=== PATIENT | male | born 1965 | race Caucasian/White ===

== ENCOUNTER 2016-12-10 13:07 | Emergency (ER) | payer BC ==
[~2016-12-10] VITALS: Ht 182.9 cm; Wt 63.5 kg
[~2016-12-10 13:07] MED LIST: ASPI81 PO
[2016-12-10 13:11] VITALS: BP 119/76; PULSE 80; RESP 18; TEMP 97.3; O2SAT 96
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
[2016-12-10] MEDS ORDERED: IBUPROFEN 800 MG TAB PO ONE (14:15)
[2016-12-10] MEDS ORDERED: BACT800T5 PO (14:15)
[2016-12-10] MEDS ORDERED: CEPHALEXIN MONOHYDRATE 500 MG CAP PO ONE (14:15)
[2016-12-10] MEDS ORDERED: SULFAMETHOXAZOLE-TRIMETHOPRIM DS 800-160 MG TAB PO ONE (14:15)
[2016-12-10] MEDS ORDERED: CEPH-460 PO (14:16)
== END 2016-12-10 14:33 | disposition home or self-care (01) ==
LOC: NEPA 13:07
DX: L03.116 Cellulitis of left lower limb (principal); L03.115 Cellulitis of right lower limb
CPT/HCPCS: 99284

== ENCOUNTER 2017-02-26 18:59 | Emergency (ER) | payer BC ==
[~2017-02-26 18:59] MED LIST changes: -ASPI81 PO; +BACT800T5 PO; +CEPH-460 PO
[2017-02-26 19:02] VITALS: BP 129/74; PULSE 81; RESP 16; TEMP 98.9; O2SAT 99
[2017-02-26] MEDS ORDERED: CEPHALEXIN MONOHYDRATE 500 MG CAP PO ONE (21:30)
[2017-02-26] MEDS ORDERED: SULFAMETHOXAZOLE-TRIMETHOPRIM DS 800-160 MG TAB PO ONE (21:30)
[2017-02-26] MEDS ORDERED: CEPH-460 PO (21:32)
[2017-02-26] MEDS ORDERED: BACT800T5 PO (21:32)
--- NOTE | 2017-02-26 21:35 | PD ---
HPI Chief Complaint: Skin Problem Time Seen by Provider: 21:28 Travel History International Travel<30 days: No Contact w/Intl Traveler<30days: No Traveled to known affect area: No History of Present Illness HPI 51-year-old white male presents to emergency Department with complaints of a painful lump under his left armpit for the past week. He denies any history of prior skin infections. He is up-to-date with immunizations. No fever or chills. Pain is [id number]. No alleviating or exacerbating activities PFSH Past Medical History Cardiovascular Problems: Yes (CP) Immunizations Current: Yes Tetanus Vaccination: < 5 Years Past Surgical History Surgical History: No Previous Surgery Social History Alcohol Use: No Tobacco Use: Yes Allergies-Medications (Allergen,Severity, Reaction): Coded Allergies: No Known Allergies (Verified , 12/10/16) Reported Meds & Prescriptions Reported Meds & Active Scripts Active Bactrim DS (Sulfamethoxazole-Trimethoprim) 800-160 Mg Tab 1 Tab PO BID Keflex (Cephalexin) 500 Mg Capsule 500 Mg PO Q6H 7 Days Keflex (Cephalexin) 500 Mg Cap 500 Mg PO Q8H Bactrim DS (Sulfamethoxazole-Trimethoprim) 800-160 Mg Tab 1 Tab PO BID Review of Systems General / Constitutional: No: Fever Eyes: No: Visual changes HENT: No: Headaches Cardiovascular: No: Chest Pain or Discomfort Respiratory: No: Shortness of Breath Gastrointestinal: No: Abdominal Pain Genitourinary: No: Dysuria Musculoskeletal: No: Pain Skin: No Rash Neurologic: No: Weakness Psychiatric: No: Depression Endocrine: No: Polydipsia Hematologic/Lymphatic: No: Easy Bruising Physical Exam Narrative GENERAL: This is a well-nourished, well-developed patient, in no apparent distress. SKIN: Patient has an area of induration, thickening, erythema and tenderness to the left axilla. This measures 1.5 x 1.5 cm. ecchymoses or lesions. Warm and dry. HEAD: Atraumatic. Normocephalic. EYES: PERRL, EOMI, no discharge or injection. No scleral icterus. EARS: Clear NOSE: Nasal turbinates appear normal. THROAT: Mucosa pink and moist. Airway patent. NECK: Trachea midline. supple, moves head freely. LUNGS: Clear to auscultation. CV: Regular in rhythm. ABDOMEN: Soft nontender. EXT: No clubbing cyanosis or edema. Data Data Last Documented VS Vital Signs Date Time Temp Pulse Resp B/P (MAP) Pulse Ox O2 Delivery O2 Flow Rate FiO2 02/26/17 19:02 98.9 81 16 129/74 (92) 99 Room Air Orders Orders Ed Discharge Order (02/26/17 21:30) Sulfamet-Trimeth Ds 800-160 Mg (Bactrim (02/26/17 21:30) Cephalexin (Keflex) (02/26/17 21:30) MDM Medical Decision Making Medical Screen Exam Complete: Yes Emergency Medical Condition: Yes Medical Record Reviewed: Yes Differential Diagnosis MDM: High Differential diagnoses: Abscess, folliculitis, cellulitis, lymphangitis, abrasion, contact dermatitis Narrative Course Patient given Keflex 500 and Bactrim DS by mouth. This is left axilla abscess Diagnosis Primary Impression: Abscess of left axilla Patient Instructions: General Instructions Additional Instructions: Rest. Elevation. keep clean and dry. Warm compresses Daily wound care with soap, water and Neosporin. Three Advil every 6 hours. Keflex and Bactrim DS. Follow-up with a primary care doctor in one week. Return to the ER for any problems. Med/Other Pt SpecificInfo: Prescription(s) given Scripts Sulfamethoxazole-Trimethoprim (Bactrim DS) 800-160 Mg Tab 1 TAB PO BID for Infection, #20 TAB 0 Refills Prov: Opal Ballard DO 02/26/17 Cephalexin (Keflex) 500 Mg Capsule 500 MG PO Q6H for Infection for 7 Days, #28 CAP 0 Refills Prov: Opal Ballard DO 02/26/17 Disposition: 01 DISCHARGE HOME Condition: Stable Carlos Gonzales Feb 26, 2017 21:35
== END 2017-02-26 21:54 | disposition home or self-care (01) ==
LOC: NEPK 18:59
DX: L02.412 Cutaneous abscess of left axilla (principal)
CPT/HCPCS: 99284

== ENCOUNTER 2017-02-28 19:17 | Emergency (ER) | payer BC ==
[~2017-02-28] VITALS: Ht 182.9 cm; Wt 65.0 kg
[2017-02-28 19:20] VITALS: BP 143/68; PULSE 81; RESP 16; TEMP 97.8; O2SAT 99
[2017-02-28] MEDS ORDERED: LIDOCAINE HCL 1% 30 ML VIAL INFIL ONE (19:45)
--- NOTE | 2017-02-28 19:51 | PD ---
HPI Chief Complaint: Skin Problem Time Seen by Provider: 19:35 Travel History International Travel<30 days: No Contact w/Intl Traveler<30days: No Traveled to known affect area: No History of Present Illness HPI 51-year-old male presents to the ED for evaluation of painful lump on the left arm times ~ one week. Patient was seen in the ED two nights ago and diagnosed with abscess. He was prescribed Bactrim and Keflex and endorses compliance with antibiotics. He states however that the areas gotten larger and the pain is now radiating down his arm. He denies fevers, chills, nausea, vomiting, history of MRSA, numbness, tingling, weakness, limitations to range of motion of the extremity. PFSH Past Medical History Cardiovascular Problems: Yes ("calcium around my heart") Diminished Hearing: No Immunizations Current: Yes Tetanus Vaccination: < 5 Years Influenza Vaccination: No Social History Alcohol Use: No Tobacco Use: Yes Substance Use: No Allergies-Medications (Allergen,Severity, Reaction): Coded Allergies: No Known Allergies (Verified Adverse Reaction, Unknown, 02/28/17) Reported Meds & Prescriptions Reported Meds & Active Scripts Active Keflex (Cephalexin) 500 Mg Capsule 500 Mg PO Q6H 7 Days Keflex (Cephalexin) 500 Mg Cap 500 Mg PO Q8H Review of Systems Except as stated in HPI: all other systems reviewed are Neg Physical Exam Narrative GENERAL: Well-nourished, well-developed pleasant white male in no acute distress. SKIN: Focused skin assessment warm/dry. SKIN: There is an indurated area in the left axilla which measures about 3 cm in diameter. It is fluctuant but there is no pointing or drainage. There is a zone of inflammation around it but no lymphangitis. HEAD: Normocephalic. EYES: No scleral icterus. No injection or drainage. NECK: Supple, trachea midline. No JVD or lymphadenopathy. CARDIOVASCULAR: Regular rate and rhythm without murmurs, gallops, or rubs. RESPIRATORY: Breath sounds equal bilaterally. No accessory muscle use. GASTROINTESTINAL: Abdomen soft, non-tender, nondistended. MUSCULOSKELETAL: No cyanosis, or edema. FOCUSED LEFT UPPER EXTREMITY EXAM: 2+ DP pulse. Patient retains full, active, painless ROM of the entire extremity. Cap refill less than 2 seconds. Sensation intact to light touch distally. BACK: Nontender without obvious deformity. No CVA tenderness. Data Data Last Documented VS Vital Signs Date Time Temp Pulse Resp B/P (MAP) Pulse Ox O2 Delivery O2 Flow Rate FiO2 02/28/17 19:20 97.8 81 16 143/68 (93) 99 Room Air Orders Orders Basic Metabolic Panel (Bmp) (02/28/17 19:35) Wound Culture And Gram Stain (02/28/17 19:35) Iv Access Insert/Monitor (02/28/17 19:35) Complete Blood Count With Diff (02/28/17 19:42) Lidocaine 1% Inj (Xylocaine 1% Inj) (02/28/17 19:45) Ibuprofen (Motrin) (02/28/17 20:00) Lidocaine 1% Inj (50 Ml) (Xylocaine 1% I (02/28/17 20:35) Ed Discharge Order (02/28/17 21:03) Labs Laboratory Tests Test 02/28/17 19:50 White Blood Count 8.0 TH/MM3 Red Blood Count 4.55 MIL/MM3 Hemoglobin 14.0 GM/DL Hematocrit 41.1 % Mean Corpuscular Volume 90.4 FL Mean Corpuscular Hemoglobin 30.7 PG Mean Corpuscular Hemoglobin Concent 33.9 % Red Cell Distribution Width 13.6 % Platelet Count 252 TH/MM3 Mean Platelet Volume 8.3 FL Neutrophils (%) (Auto) 53.0 % Lymphocytes (%) (Auto) 34.2 % Monocytes (%) (Auto) 7.9 % Eosinophils (%) (Auto) 4.0 % Basophils (%) (Auto) 0.9 % Neutrophils # (Auto) 4.3 TH/MM3 Lymphocytes # (Auto) 2.8 TH/MM3 Monocytes # (Auto) 0.6 TH/MM3 Eosinophils # (Auto) 0.3 TH/MM3 Basophils # (Auto) 0.1 TH/MM3 CBC Comment DIFF FINAL Differential Comment MDM Medical Decision Making Medical Screen Exam Complete: Yes Emergency Medical Condition: Yes Differential Diagnosis Abscess versus hidradenitis versus cellulitis versus other Narrative Course 51-year-old male presents to the ED for evaluation of painful lump on the left arm times ~ one week. Patient was seen in the ED two nights ago and diagnosed with abscess. He was prescribed Bactrim and Keflex and endorses compliance with antibiotics. He states however that the areas gotten larger and the pain is now radiating down his arm. He denies fevers, chills, nausea, vomiting, history of MRSA, numbness, tingling, weakness, limitations to range of motion of the extremity. Patient afebrile on presentation. Physical exam reveals a 3 cm abscess in the left axilla without cellulitic streaking or lymphadenopathy. Abscess I&D was performed. Please see my procedure note for details. Cultures were obtained and are pending. No elevation of the white count on the CBC. The patient's reliable to return should symptoms worsen. His is an PROC[employer]URE [employer] and he states she will be able to remove the packing in 2 days. He is instructed to continue with the antibiotics until they're completely gone, follow-up with the primary care provider. He indicated understanding of instructions and is agreeable to the care plan. He is stable and discharged home. Procedures Procedure Narrative INCISION AND DRAINAGE OF ABSCESS: The area was prepped and was sterilely draped. A subcutaneous wheal of 1% % Xylocaine with a total number 3 mL was used to anesthetize the area properly. A number 11 scalpel was used to make a 1.25-cm incision across the area of the abscess. The abscess was drained, complex loculations were broken down, and irrigated with normal saline. Cultures were obtained. Quarter inch iodoform packing was placed in the wound. Sterile dressing applied. Patient advised to have packing removed in two days. Diagnosis Primary Impression: Abscess of left axilla Referrals: Primary Care Physician Patient Instructions: Abscess Incision and Drainage (DC), General Instructions Additional Instructions: Rest, hydrate. Do not change the dressing for 48 hours. Packing removal in 48 hours. You may bathe normally. Do not submerge the wound. After bathing pat of wound dry. Allow the wound to air dry for 10-15 minutes. Apply a thin layer of antibiotic ointment and a clean, dry dressing. Take the antibiotics as they are prescribed, even if your symptoms resolved. Utilize [id number] pain medications, as described on the label, as needed. Return to the ED for worsening symptoms as discussed. Return to the ED for any urgent or emergent medical condition. Disposition: 01 DISCHARGE HOME Condition: Stable Yisel Brito Feb 28, 2017 19:51
[2017-02-28] MEDS ORDERED: IBUPROFEN 800 MG TAB PO ONE (20:00)
[2017-02-28 20:31] LABS: AUTOMATED NEUTROPHIL # 4.3 TH/MM3 (1.8-7.7); BASOPHIL # 0.1 TH/MM3 (0-0.2); BASOPHIL % 0.9 % (0.0-2.0); EOSINOPHIL # 0.3 TH/MM3 (0-0.4); HEMATOCRIT 41.1 % (39.0-51.0); HEMO FLAGS DIFF FINAL; LYMPH % 34.2 % (9.0-44.0); LYMPHOCYTE # 2.8 TH/MM3 (1.0-4.8); MEAN CELL VOLUME 90.4 FL (80.0-100.0); MEAN CORPUSCULAR HEMOGLOBIN 30.7 PG (27.0-34.0); MEAN CORPUSCULAR HGB CONC 33.9 % (32.0-36.0); MONO % 7.9 % (0.0-8.0); PLATELET COUNT 252 TH/MM3 (150-450); RED BLOOD COUNT 4.55 MIL/MM3 (4.50-5.90); RED CELL DISTRIBUTION WIDTH 13.6 % (11.6-17.2)
[2017-02-28] MEDS ORDERED: LIDOCAINE HCL 1% 50 ML VIAL ONE (20:35)
[2017-02-28 21:27] LABS: BICARBONATE 28.9 MEQ/L (21.0-32.0)
== END 2017-02-28 22:09 | disposition home or self-care (01) ==
LOC: NEPC 19:17
DX: L02.412 Cutaneous abscess of left axilla (principal); B95.62 Methicillin resistant Staphylococcus aureus infection as the cause of diseases classified elsewhere; Z72.0 Tobacco use
CPT/HCPCS: 10060; 80048; 85025; 86403; 87070; 87186; 87205

== ENCOUNTER 2017-04-01 17:52 | Emergency (ER) | payer BC ==
[~2017-04-01 17:52] MED LIST changes: -BACT800T5 PO
[2017-04-01 17:53] VITALS: BP 139/68; PULSE 82; RESP 16; TEMP 98.9; O2SAT 98
[2017-04-01] MEDS ORDERED: BACT800T5 PO (19:12)
--- NOTE | 2017-04-01 19:15 | PD ---
HPI Chief Complaint: Skin Problem Time Seen by Provider: 19:12 Travel History International Travel<30 days: No Contact w/Intl Traveler<30days: No Traveled to known affect area: No History of Present Illness HPI 51-year-old male here for evaluation of painful area of skin redness in the left axilla. It started yesterday. Pain is mild, aching, worse with palpation. Denies drainage, fevers chills. He was seen in February with left axillary abscess. Wound culture at that time grow MRSA. He has no other complaints at this time. [facility] Past Medical History Medical History: Denies Significant Hx Cardiovascular Problems: Yes ("calcium around my heart") Diminished Hearing: No Immunizations Current: Yes Tetanus Vaccination: < 5 Years Influenza Vaccination: No Past Surgical History Other Surgery: Yes (TONSILLECTOMY) Social History Alcohol Use: No Tobacco Use: Yes (1ppd) Substance Use: No Allergies-Medications (Allergen,Severity, Reaction): Coded Allergies: No Known Allergies (Verified Adverse Reaction, Unknown, 04/01/17) Reported Meds & Prescriptions Reported Meds & Active Scripts Active Bactrim DS (Sulfamethoxazole-Trimethoprim) 800-160 Mg Tab 1 Tab PO BID Review of Systems General / Constitutional: No: Fever, Chills Skin: Positive Other (skin redness, pain) Physical Exam Narrative GENERAL: Well-nourished male in no acute distress SKIN: Warm and dry. Folliculitis noted to the left axilla with mild erythema. No induration or fluctuance or drainage. No lymphadenopathy. HEAD: Atraumatic. Normocephalic. EYES: Pupils equal and round. No scleral icterus. No injection or drainage. ENT: No nasal bleeding or discharge. Mucous membranes pink and moist. NECK: Trachea midline. No JVD. CARDIOVASCULAR: Regular rate and rhythm. No murmur appreciated. RESPIRATORY: No accessory muscle use. Clear to auscultation. Breath sounds equal bilaterally. Data Data Last Documented VS Vital Signs Date Time Temp Pulse Resp B/P (MAP) Pulse Ox O2 Delivery O2 Flow Rate FiO2 04/01/17 17:53 98.9 82 16 139/68 (91) 98 Orders Orders Ed Discharge Order (04/01/17 19:12) MDM Medical Decision Making Medical Screen Exam Complete: Yes Emergency Medical Condition: Yes Medical Record Reviewed: Yes Differential Diagnosis Folliculitis, cellulitis, abscess, carbuncle, hydradenitis Narrative Course Examination is consistent with folliculitis mild cellulitis in the left axilla. Wound cultures from the left axillary abscess in February grow out MRSA. Therefore the patient be started on Bactrim. Diagnosis Primary Impression: Folliculitis of left axilla Additional Impression: Cellulitis of left axilla Additional Instructions: Medication as prescribed. Warm compresses several times a day 15 minutes at a time. Return for any emergent medical conditions. Med/Other Pt SpecificInfo: Prescription(s) given Scripts Sulfamethoxazole-Trimethoprim (Bactrim DS) 800-160 Mg Tab 1 TAB PO BID for Infection, #20 TAB 0 Refills Prov: Orville Rodriguez MD 04/01/17 Disposition: 01 DISCHARGE HOME Condition: Stable Bill Anton Apr 01, 2017 19:15
== END 2017-04-01 19:31 | disposition home or self-care (01) ==
LOC: NEPD 17:52
DX: L73.9 Follicular disorder, unspecified (principal); L03.112 Cellulitis of left axilla; F17.200 Nicotine dependence, unspecified, uncomplicated
CPT/HCPCS: 99283

== ENCOUNTER 2017-04-04 06:12 | Emergency (ER) | payer BC ==
[~2017-04-04] VITALS: Ht 177.8 cm; Wt 75.0 kg
[2017-04-04 06:12] VITALS: BP 129/75; PULSE 80; RESP 16; TEMP 97.9; O2SAT 100
[~2017-04-04 06:12] MED LIST changes: +BACT800T5 PO; -CEPH-460 PO
[2017-04-04] MEDS ORDERED: DOXY100C PO (06:30)
--- NOTE | 2017-04-04 06:33 | PD ---
HPI Chief Complaint: Skin Problem Time Seen by Provider: 06:27 Travel History International Travel<30 days: No Contact w/Intl Traveler<30days: No Traveled to known affect area: No History of Present Illness HPI 51-year-old male presents for evaluation of abscess left axilla. He was seen here a few days ago with folliculitis in left axilla. He was prescribed Bactrim. Symptoms have worsened which prompted her evaluation. He reports associate pain, aching, localized to left axilla. Denies drainage, fevers or chills. No other complaints. PFSH Past Medical History Cardiovascular Problems: Yes ("calcium around my heart") Diminished Hearing: No Immunizations Current: Yes Tetanus Vaccination: < 5 Years Influenza Vaccination: No Past Surgical History Other Surgery: Yes (TONSILLECTOMY) Social History Alcohol Use: No Tobacco Use: Yes (1ppd) Substance Use: No Allergies-Medications (Allergen,Severity, Reaction): Coded Allergies: No Known Allergies (Verified Adverse Reaction, Unknown, 04/04/17) Reported Meds & Prescriptions Reported Meds & Active Scripts Active Doxycycline Hyclate 100 Mg Cap 100 Mg PO BID Bactrim DS (Sulfamethoxazole-Trimethoprim) 800-160 Mg Tab 1 Tab PO BID Review of Systems General / Constitutional: No: Fever, Chills Skin: Positive Other (positive soft tissue swelling, pain) Physical Exam Narrative GENERAL: Well-nourished male in no acute distress SKIN: Warm and dry. 1 Cm fluctuant abscess left axilla. HEAD: Atraumatic. Normocephalic. EYES: Pupils equal and round. No scleral icterus. No injection or drainage. ENT: No nasal bleeding or discharge. Mucous membranes pink and moist. NECK: Trachea midline. No JVD. CARDIOVASCULAR: Regular rate and rhythm. No murmur appreciated. RESPIRATORY: No accessory muscle use. Clear to auscultation. Breath sounds equal bilaterally. Data Data Last Documented VS Vital Signs Date Time Temp Pulse Resp B/P (MAP) Pulse Ox O2 Delivery O2 Flow Rate FiO2 04/04/17 06:12 97.9 80 16 129/75 (93) 100 Room Air MDM Medical Decision Making Medical Screen Exam Complete: Yes Emergency Medical Condition: Yes Medical Record Reviewed: Yes Differential Diagnosis Axillary abscess, carbuncle, hydradenitis, cellulitis, infected cyst Narrative Course The patient has an abscess in the left axilla. Incision and drainage was performed, he verbally consented. Recent wound culture from left axilla grew MRSA sensitive to doxycycline. He will be started on doxycycline. Procedures Procedure Narrative INCISION AND DRAINAGE OF ABSCESS: The area was prepped and was sterilely draped. A subcutaneous wheal of 1% Xylocaine with a total number 4 mL was used to anesthetize the area. The area was properly anesthetized. A number 11 scalpel was used to make a 1 -cm incision across the area of the abscess. Diagnosis Primary Impression: Abscess of left axilla Additional Instructions: Medications as prescribed. Warm compresses several times a day 10 minutes at a time. Return for any acutely new or worsening symptoms. Med/Other Pt SpecificInfo: Prescription(s) given Scripts Doxycycline Hyclate (Doxycycline Hyclate) 100 Mg Cap 100 MG PO BID for Infection, #20 CAP 0 Refills Prov: Kiley Suarez MD 04/04/17 Disposition: 01 DISCHARGE HOME Condition: Stable Bill Anton Apr 04, 2017 06:33
== END 2017-04-04 06:47 | disposition home or self-care (01) ==
LOC: NEPD 06:12
DX: L02.412 Cutaneous abscess of left axilla (principal); B95.62 Methicillin resistant Staphylococcus aureus infection as the cause of diseases classified elsewhere; F17.200 Nicotine dependence, unspecified, uncomplicated
CPT/HCPCS: 10060

== ENCOUNTER 2017-05-27 17:28 | Emergency (ER) | payer BC ==
[~2017-05-27] VITALS: Ht 182.9 cm; Wt 66.5 kg
[2017-05-27 17:28] VITALS: BP 120/65; PULSE 93; RESP 18; TEMP 99; O2SAT 97
[~2017-05-27 17:28] MED LIST changes: +DOXY100C PO
[2017-05-27 18:06] LABS: AUTOMATED NEUTROPHIL # 4.6 TH/MM3 (1.8-7.7); BASOPHIL # 0.1 TH/MM3 (0-0.2); EOSINOPHIL # 0.3 TH/MM3 (0-0.4); EOSINOPHIL % 3.4 % (0.0-4.0); HEMATOCRIT 40.6 % (39.0-51.0); HEMOGLOBIN 14.1 GM/DL (13.0-17.0); LYMPH % 29.3 % (9.0-44.0); LYMPHOCYTE # 2.3 TH/MM3 (1.0-4.8); MEAN CELL VOLUME 89.3 FL (80.0-100.0); MEAN CORPUSCULAR HGB CONC 34.8 % (32.0-36.0); MEAN PLATELET VOLUME 8.1 FL (7.0-11.0); MONO % 8.8 % (0.0-8.0); MONOCYTE # 0.7 TH/MM3 (0-0.9); NEUT % 57.5 % (16.0-70.0); PLATELET COUNT 251 TH/MM3 (150-450); RED BLOOD COUNT 4.55 MIL/MM3 (4.50-5.90); RED CELL DISTRIBUTION WIDTH 13.5 % (11.6-17.2)
[2017-05-27 18:16] LABS: BILIRUBIN, URINE NEG (NEG); BLOOD, URINE NEG (NEG); GLUCOSE,URINE NEG (NEG); KETONE, URINE NEG (NEG); NITRITE,URINE NEG (NEG); URINE COLOR YELLOW (YELLW/STRAW); URINE LEUKOCYTE ESTERASE NEG (NEG)
[2017-05-27 18:30] LABS: ALBUMIN 3.9 GM/DL (3.4-5.0); AST (GOT) 22 U/L (15-37); BICARBONATE 25.6 MEQ/L (21.0-32.0); BLOOD UREA NITROGEN 13 MG/DL (7-18); CALCIUM 9.3 MG/DL (8.5-10.1); CHLORIDE 104 MEQ/L (98-107); CREATININE 1.01 MG/DL (0.60-1.30); GLOMERULAR FILTRATION RATE 78 ML/MIN (>89); GLUCOSE,RANDOM 85 MG/DL (74-106); SODIUM (NA) 137 MEQ/L (136-145)
[2017-05-27 18:32] LABS: ALKALINE PHOSPHATASE 85 U/L (45-117); ALT (GPT) 25 U/L (12-78); TOTAL BILIRUBIN ADULT 0.4 MG/DL (0.2-1.0); TOTAL PROTEIN 6.7 GM/DL (6.4-8.2)
--- NOTE | 2017-05-27 19:14 | RADRPT ---
EXAM DATE/TIME: 05/27/2017 18:47 [facility] COMPARISON: No previous studies available for comparison. INDICATIONS : Left flank pain. ORAL CONTRAST: No oral contrast ingested. RADIATION DOSE: 6.79 CTDIvol (mGy) MEDICAL HISTORY : Cardiovascular disease. SURGICAL HISTORY : Tonsillectomy. ENCOUNTER: Initial ACUITY: 1 day PAIN SCALE: 5/10 LOCATION: Left flank TECHNIQUE: Volumetric scanning of the abdomen and pelvis was performed. Using automated exposure control and ad justment of the mA and/or kV according to patient size, radiation dose was kept as low as reasonably achievable to obtain optimal diagnostic quality images. DICOM format image data is available electro nically for review and comparison. The lack of IV contrast limits the diagnosis for certain organ pa thology. FINDINGS: LOWER LUNGS: The visualized lower lungs are clear. LIVER: Homogeneous density without lesion. There is no dilation of the biliary tree. No calcified gallston es. The gallbladder is contracted. SPLEEN: Normal size without lesion. PANCREAS: Within normal limits. KIDNEYS: Normal in size and shape. There is no mass, stone, or hydronephrosis. ADRENAL GLANDS: Within normal limits. VASCULAR: There is no aortic aneurysm. Atherosclerotic changes in the aorta. BOWEL/MESENTERY: The stomach, small bowel, and colon demonstrate no acute abnormality. There is no free intraperitone al air or fluid. No inflammatory changes. ABDOMINAL WALL: Within normal limits. RETROPERITONEUM: There is no lymphadenopathy. BLADDER: No wall thickening or mass. REPRODUCTIVE: Within normal limits. INGUINAL: There is no lymphadenopathy or hernia. MUSCULOSKELETAL: Within normal limits for patient age. CONCLUSION: 1. No evidence of calcified renal stones or hydronephrosis. 2. Unremarkable noncontrast CT scan of the abdomen and pelvis for patient's age. Samir Palomo MD on May 27, 2017 at 19:10 Board Certified Radiologist. This report was verified electronically.
[2017-05-27] MEDS ORDERED: CYCL10TA PO (22:28)
--- NOTE | 2017-05-27 22:28 | PD ---
HPI Chief Complaint: Flank/Kidney Pain Time Seen by Provider: 22:10 Travel History International Travel<30 days: No Contact w/Intl Traveler<30days: No Traveled to known affect area: No History of Present Illness HPI 51-year-old male here for evaluation of right flank pain. The patient reports sharp pain in his right flank area for the last 3 days which is been constant, radiates to his right groin, intermittently worse at times, sometimes worse with movements. Patient describes the pain as sharp, currently 5 out of 10. He denies dysuria or gross hematuria. No fevers, chills, vomiting, or diarrhea. He denies trauma. No rash. PFSH Past Medical History Cardiovascular Problems: Yes ("calcium around my heart") Diminished Hearing: No Immunizations Current: Yes Past Surgical History Other Surgery: Yes (TONSILLECTOMY) Social History Alcohol Use: No Tobacco Use: Yes (1ppd) Substance Use: No Allergies-Medications (Allergen,Severity, Reaction): Coded Allergies: No Known Allergies (Verified Adverse Reaction, Unknown, 04/04/17) Reported Meds & Prescriptions Reported Meds & Active Scripts Active Doxycycline Hyclate 100 Mg Cap 100 Mg PO BID Bactrim DS (Sulfamethoxazole-Trimethoprim) 800-160 Mg Tab 1 Tab PO BID Review of Systems Except as stated in HPI: all other systems reviewed are Neg Physical Exam Narrative GENERAL: Well-developed, well-nourished, comfortable, no apparent distress. SKIN: Focused skin assessment warm/dry. No rash. HEAD: Atraumatic. Normocephalic. EYES: Pupils equal and round. No scleral icterus. No injection or drainage. ENT: No nasal bleeding or discharge. Mucous membranes pink and moist. NECK: Trachea midline. No JVD. CARDIOVASCULAR: Regular rate and rhythm. RESPIRATORY: No accessory muscle use. Clear to auscultation. Breath sounds equal bilaterally. GASTROINTESTINAL: Abdomen soft, non-tender, nondistended. No hernias. MUSCULOSKELETAL: No obvious deformities. No clubbing. No cyanosis. No edema. No midline vertebral step-off or tenderness. Mild right CVA tenderness. Mild left CVA tenderness. NEUROLOGICAL: Awake and alert. No obvious cranial nerve deficits. Motor grossly within normal limits. Normal speech. PSYCHIATRIC: Appropriate mood and affect; insight and judgment normal. Data Data Last Documented VS Vital Signs Date Time Temp Pulse Resp B/P (MAP) Pulse Ox O2 Delivery O2 Flow Rate FiO2 05/27/17 17:28 99.0 93 18 120/65 (83) 97 Room Air Orders Orders Complete Blood Count With Diff (05/27/17 17:41) Comprehensive Metabolic Panel (05/27/17 17:41) Urinalysis - C+S If Indicated (05/27/17 17:41) Ct Abd/Pel W/O Iv Contrast (05/27/17 17:41) Lipase (05/27/17 17:41) Ketorolac Inj (Toradol Inj) (05/27/17 22:30) Labs Laboratory Tests Test 05/27/17 17:50 White Blood Count 8.0 TH/MM3 Red Blood Count 4.55 MIL/MM3 Hemoglobin 14.1 GM/DL Hematocrit 40.6 % Mean Corpuscular Volume 89.3 FL Mean Corpuscular Hemoglobin 31.0 PG Mean Corpuscular Hemoglobin Concent 34.8 % Red Cell Distribution Width 13.5 % Platelet Count 251 TH/MM3 Mean Platelet Volume 8.1 FL Neutrophils (%) (Auto) 57.5 % Lymphocytes (%) (Auto) 29.3 % Monocytes (%) (Auto) 8.8 % Eosinophils (%) (Auto) 3.4 % Basophils (%) (Auto) 1.0 % Neutrophils # (Auto) 4.6 TH/MM3 Lymphocytes # (Auto) 2.3 TH/MM3 Monocytes # (Auto) 0.7 TH/MM3 Eosinophils # (Auto) 0.3 TH/MM3 Basophils # (Auto) 0.1 TH/MM3 CBC Comment DIFF FINAL Differential Comment Urine Color YELLOW Urine Turbidity CLEAR Urine pH 7.0 Urine Specific [place] 1.021 Urine Protein TRACE mg/dL Urine Glucose (UA) NEG mg/dL Urine Ketones NEG mg/dL Urine Occult Blood NEG Urine Nitrite NEG Urine Bilirubin NEG Urine Urobilinogen LESS THAN 2.0 MG/DL Urine Leukocyte Esterase NEG Urine RBC 4 /hpf Urine WBC LESS THAN 1 /hpf Microscopic Urinalysis Comment CULT NOT INDICATED Blood Urea Nitrogen 13 MG/DL Creatinine 1.01 MG/DL Random Glucose 85 MG/DL Total Protein 6.7 GM/DL Albumin 3.9 GM/DL Calcium Level 9.3 MG/DL Alkaline Phosphatase 85 U/L Aspartate Amino Transf (AST/SGOT) 22 U/L Alanine Aminotransferase (ALT/SGPT) 25 U/L Total Bilirubin 0.4 MG/DL Sodium Level 137 MEQ/L Potassium Level 4.2 MEQ/L Chloride Level 104 MEQ/L Carbon Dioxide Level 25.6 MEQ/L Anion Gap 7 MEQ/L Estimat Glomerular Filtration Rate 78 ML/MIN Lipase 101 U/L [facility] Medical Decision Making Medical Screen Exam Complete: Yes Emergency Medical Condition: Yes Differential Diagnosis Nephrolithiasis, ureterolithiasis, UTI, pyelonephritis, musculoskeletal pain, shingles Narrative Course Vital signs show heart rate 93, blood pressure 120/65, pulse ox 97% on room air , oral temp of 99F. CBC is unremarkable. CMP is unremarkable. Lipase is 101. UA shows 4 rbc's, not suggestive of UTI. CT abdomen pelvis: CONCLUSION: 1. No evidence of calcified renal stones or hydronephrosis. 2. Unremarkable noncontrast CT scan of the abdomen and pelvis for patient's age. Patient was made aware of all findings. He is resting comfortably. There is no rash on exam. I explained to him that he may have passed a kidney stone. He does smoke cigarettes, and I explained that this can put him at increased risk for bladder or renal cancer. He was advised to follow-up with his primary care physician this week regarding his microscopic hematuria. He is stable for discharge home with outpatient follow-up. He was informed on when to return to the emergency department. He verbalizes understanding and agreement with plan. Diagnosis Primary Impression: Right flank pain Additional Impression: Microscopic hematuria Referrals: Donnie Rogel MD 3 days Urologist Primary Care Physician 3 days Additional Instructions: Follow-up with your primary care physician this week. Follow-up with urologist Dr. Rogel or a urologist of your choice this week. Return to the emergency department for worsening symptoms or any other concerns. Scripts Cyclobenzaprine (Flexeril) 10 Mg Tab 10 MG PO TID for Muscle Spasm, #12 TAB 0 Refills Prov: Marques Wood MD 05/27/17 Disposition: 01 DISCHARGE HOME Condition: Stable Marques Wood MD May 27, 2017 22:28
[2017-05-27] MEDS ORDERED: KETOROLAC TROMETHAMINE 60 MG/2 ML (IM) VIAL IM ONE (22:30)
== END 2017-05-27 22:39 | disposition home or self-care (01) ==
LOC: NEPD 17:28
DX: R10.9 Unspecified abdominal pain (principal); R31.29 Other microscopic hematuria; I25.10 Atherosclerotic heart disease of native coronary artery without angina pectoris; F17.210 Nicotine dependence, cigarettes, uncomplicated; Z79.899 Other long term (current) drug therapy
CPT/HCPCS: 74176; 80053; 81001; 83690; 85025; 96372; 99284; J1885

== ENCOUNTER 2017-07-11 10:30 | Emergency (ER) | payer BC ==
[~2017-07-11] VITALS: Ht 182.9 cm; Wt 65.0 kg
[~2017-07-11 10:30] MED LIST changes: -BACT800T5 PO; +CYCL10TA PO; -DOXY100C PO
[2017-07-11 10:36] VITALS: BP 135/73; PULSE 80; RESP 16; TEMP 98.3; O2SAT 100
[2017-07-11] MEDS ORDERED: IBUP1TAB7 PO (12:30)
--- NOTE | 2017-07-11 12:31 | PD ---
HPI Chief Complaint: Pain: Acute or Chronic Time Seen by Provider: 12:07 Travel History International Travel<30 days: No Contact w/Intl Traveler<30days: No Traveled to known affect area: No History of Present Illness HPI 51-year-old male with nontraumatic right knee pain 10 days. He denies injury or trauma. No swelling. No warmth or erythema. Pain is worse with range of motion and relieved with rest. He has not attempted any OTC medications. Symptom severity is mild. PFSH Past Medical History Medical History: Denies Significant Hx Cardiovascular Problems: Yes ("calcium around my heart") Diminished Hearing: No Immunizations Current: Yes Tetanus Vaccination: < 5 Years Influenza Vaccination: No Past Surgical History Tonsillectomy: Yes (adenoids) Other Surgery: Yes (TONSILLECTOMY) Social History Alcohol Use: No Tobacco Use: Yes (/2 pk) Substance Use: No Allergies-Medications (Allergen,Severity, Reaction): Coded Allergies: No Known Allergies (Verified Adverse Reaction, Unknown, 07/11/17) Reported Meds & Prescriptions Reported Meds & Active Scripts Active No Active Prescriptions or Reported Medications Review of Systems Except as stated in HPI: all other systems reviewed are Neg General / Constitutional: No: Fever Physical Exam Narrative GENERAL: Alert well-appearing 51-year-old male SKIN: Warm and dry. HEAD: Normocephalic. EYES: No injection or drainage. NECK: Supple MUSCULOSKELETAL: No cyanosis, or edema. Right lower extremity: Patient points to the medial aspect of the knee as a source of the pain. The knee is nontender. No swelling. Full range of motion. Joint is stable. 2+ distal pulses. Normal sensation. Brisk cap refill. Data Data Last Documented VS Vital Signs Date Time Temp Pulse Resp B/P (MAP) Pulse Ox O2 Delivery O2 Flow Rate FiO2 07/11/17 11:27 (93) 07/11/17 10:36 98.3 80 16 100 Room Air [facility] Medical Decision Making Medical Screen Exam Complete: Yes Emergency Medical Condition: Yes Differential Diagnosis Arthritis, medial collateral ligament strain, tendinitis Narrative Course 51-year-old male here with nontraumatic right knee pain 10 days. Patient has no soft tissue or bony tenderness on exam. No warmth or erythema. Full range of motion and normal sensation. Extremities neurovascular intact. He'll be treated with NSAIDs. Diagnosis Primary Impression: Knee pain Qualified Codes: M25.561 - Pain in right knee Referrals: Orthopedist Scripts Ibuprofen (Ibuprofen) 800 Mg Tab 800 MG PO Q6HR Y for PAIN, #40 TAB 0 Refills Prov: Luiza Dimas 07/11/17 Disposition: 01 DISCHARGE HOME Condition: Stable Luiza Dimas Jul 11, 2017 12:31
== END 2017-07-11 12:49 | disposition home or self-care (01) ==
LOC: PHED 10:30 → PHEFT 12:49
DX: M25.561 Pain in right knee (principal)
CPT/HCPCS: 99283

== ENCOUNTER 2017-09-04 19:01 | Emergency (ER) | payer BC ==
[~2017-09-04] VITALS: Ht 182.9 cm; Wt 67.9 kg
[~2017-09-04 19:01] MED LIST changes: -CYCL10TA PO; +IBUP1TAB7 PO
[2017-09-04 19:07] VITALS: BP 102/61; PULSE 88; RESP 18; TEMP 99.3; O2SAT 97
--- NOTE | 2017-09-04 19:45 | PD ---
HPI Chief Complaint: Cold / Flu Symptoms Time Seen by Provider: 19:36 Travel History International Travel<30 days: No Contact w/Intl Traveler<30days: No Traveled to known affect area: No History of Present Illness HPI Patient is a 52-year-old male who presents the emergency room for evaluation of cough. Patient reports that he began to have a dry cough yesterday, reports that he came in for work last night and began to have a sore throat. Patient reports concerns for possible bronchitis as his was recently treated for this by her primary care doctor. Patient denies any fevers or chills, denies any chest pain or shortness of breath. Patient with no other complaints at this time. PFSH Past Medical History Medical History: Denies Significant Hx Cardiovascular Problems: Yes ("calcium around my heart") Diminished Hearing: No Immunizations Current: Yes Tetanus Vaccination: < 5 Years Influenza Vaccination: No Past Surgical History Tonsillectomy: Yes (adenoids) Other Surgery: Yes (TONSILLECTOMY) Social History Alcohol Use: No Tobacco Use: Yes (1/2 ppd) Substance Use: No Allergies-Medications (Allergen,Severity, Reaction): Coded Allergies: No Known Allergies (Verified Adverse Reaction, Unknown, 09/04/17) Reported Meds & Prescriptions Reported Meds & Active Scripts Active Tessalon Perles (Benzonatate) 100 Mg Cap 100 Mg PO TID PRN Zithromax Z-Roman (Azithromycin) 250 Mg Dspk 250 Mg PO DIRECTED 500 MG (2 tabs) day 1, then 1 tab days 2-5. Review of Systems General / Constitutional: No: Fever, Chills Eyes: No: Visual changes HENT: Positive: Sore Throat, No: Headaches, Lightheadedness Cardiovascular: No: Chest Pain or Discomfort Respiratory: Positive: Cough, No: Shortness of Breath, Wheezing Gastrointestinal: No: Nausea, Vomiting, Abdominal Pain Genitourinary: No: Dysuria Musculoskeletal: No: Pain Skin: No Rash Neurologic: No: Weakness Psychiatric: No: Depression Endocrine: No: Polydipsia Hematologic/Lymphatic: No: Easy Bruising Physical Exam Narrative GENERAL: Well-nourished, well-developed patient. SKIN: Focused skin assessment warm/dry. HEAD: Normocephalic. EYES: No scleral icterus. No injection or drainage. NECK: Supple, trachea midline. No JVD or lymphadenopathy. ENT: Patient with no cervical lymph adenopathy, patient with no swelling or erythema to posterior pharynx CARDIOVASCULAR: Regular rate and rhythm without murmurs, gallops, or rubs. RESPIRATORY: Breath sounds equal bilaterally. No accessory muscle use. GASTROINTESTINAL: Abdomen soft, non-tender, nondistended. MUSCULOSKELETAL: No cyanosis, or edema. BACK: Nontender without obvious deformity. No CVA tenderness. Data Data Last Documented VS Vital Signs Date Time Temp Pulse Resp B/P (MAP) Pulse Ox O2 Delivery O2 Flow Rate FiO2 09/04/17 19:07 99.3 88 18 102/61 (75) 97 Orders Orders Chest, Pa & Lat (09/04/17 19:40) Group A Rapid Strep Screen (09/04/17 19:40) Strep Culture (Group A) (09/04/17 19:44) Ed Discharge Order (09/04/17 20:43) MDM Medical Decision Making Medical Screen Exam Complete: Yes Emergency Medical Condition: Yes Medical Record Reviewed: Yes Interpretation(s) Vital Signs Date Time Temp Pulse Resp B/P (MAP) Pulse Ox O2 Delivery O2 Flow Rate FiO2 09/04/17 19:07 99.3 88 18 102/61 (75) 97 Differential Diagnosis Viral syndrome, pneumonia, bronchitis, strep pharyngitis Narrative Course 52 year old nontoxic male who presents to the ER with c/o of non productive cough and sore throat since last night. During the course of the patients emergency department visit, the patients history, examination, and differential diagnosis were reviewed with the patient. The patients laboratory studies were reviewed and remarkable for Microbiology Date/Time Source Procedure Growth Status 09/04/17 19:44 Throat Group A Streptococcus Screen Pending Received 09/04/17 19:44 Throat Group A Streptococcus Screen ([facility]) - Final Complete Radiology studies were reviewed and remarkable for: No obvious infiltrates Plan to treat patient for bronchitis, he will follow-up with his primary care doctor and will return to the emergency room as needed. Patient was discharged prior to x-ray being read by radiologist, I did review the x-ray myself and did not see any obvious infiltrates. After the patient was discharged, x-ray the result which showed a possible 1.3 cm oval mass in the right upper lung. Call back to patient at home as radiologist read chest xray: CONCLUSION: 1. Hyperinflated lungs with emphysematous change in the upper lungs. 2. Possible 1.3 cm oval mass in the right upper lung Patient notified of possible 1.3cm oval mass in right upper lung. He will follow up with his pcp for this, reports that he was due for labs and xrays last month, but was too busy at work to go, he will make sure he gets his studies and follows up with his primary care doctor for this. I did stress importance of following up with this possible 1.3 cm oval mass in his right upper lung. Patient was thankful for the call back. Diagnosis Primary Impression: Bronchitis Patient Instructions: General Instructions Additional Instructions: Please follow up with your primary care doctor in 2-3 days Return to the ER if symptoms worsen or progress Return to the ER as needed Med/Other Pt SpecificInfo: Prescription(s) given Scripts Benzonatate (Tessalon Perles) 100 Mg Cap 100 MG PO TID Y for COUGH, #30 CAP 0 Refills Prov: Taryn Lane DO 09/04/17 Azithromycin (Zithromax Z-Roman) 250 Mg Dspk 250 MG PO DIRECTED for Infection, #1 DSPK 0 Refills 500 MG (2 tabs) day 1, then 1 tab days 2-5. Prov: Taryn Lane DO 09/04/17 Disposition: 01 DISCHARGE HOME Condition: Stable Taryn Lane DO September 04, 2017 19:45
[2017-09-04] MEDS ORDERED: BENZ100 PO (20:31)
[2017-09-04] MEDS ORDERED: ZITHTAB PO (20:31)
--- NOTE | 2017-09-04 21:04 | RADRPT ---
EXAM DATE/TIME: 09/04/2017 19:45 [facility] COMPARISON: No previous studies available for comparison. INDICATIONS : Cough. MEDICAL HISTORY : Cardiovascular disease SURGICAL HISTORY : Tonsillectomy. ENCOUNTER: Initial ACUITY: 2 days PAIN SCORE: 0/10 LOCATION: Bilateral chest FINDINGS: PA and lateral views of the chest demonstrate the lungs to be symmetrically aerated without evidence of mass, infiltrate or effusion. Lungs are hyperinflated. There is emphysematous changes in the uppe r lungs. There is a 1.3 cm oval masslike area seen in the superior-medial right upper lung. The cardi omediastinal contours are unremarkable. Osseous structures are intact. CONCLUSION: 1. Hyperinflated lungs with emphysematous change in the upper lungs. 2. Possible 1.3 cm oval mass in the right upper lung. Earl Baldwin MD on September 04, 2017 at 21:01 Board Certified Radiologist. This report was verified electronically.
== END 2017-09-04 20:47 | disposition home or self-care (01) ==
LOC: PHEFT 19:01
DX: J40 Bronchitis, not specified as acute or chronic (principal); R07.0 Pain in throat; F17.200 Nicotine dependence, unspecified, uncomplicated
CPT/HCPCS: 71046; 87081; 87880; 99284